=== PATIENT | female | born 1970 | race Two or more races ===

== ENCOUNTER 2016-07-25 13:09 | Emergency (ER) | payer OTHER, MEDICAID ==
[2016-07-25 13:18] VITALS: TEMP 97.3
[2016-07-25] MEDS ORDERED: traMADol 50 MG TAB PO ONE (13:26)
--- NOTE | 2016-07-25 13:50 | EDPHY ---
General Narrative: CHIEF COMPLAINT: Fall, Knee pain, bilateral wrist pain HISTORY OF PRESENT ILLNESS: Carrying trash out to a dumpster Earlier this morning when she slipped. She says she fell, striking her left knee and both wrists. . She has [id number] pain in both wrists, and severe pain left knee. The pain is to the point she can barely walk on the knee. There is swelling. No laceration. No head or neck injury. No loss of conscious. No chest or back pain. No abdominal injuries. No injury to the right leg. No pain in the hands, elbows or shoulders of the upper extremities. Pain is worse with any kind of palpation or movement. Does not radiate. It improves at rest but does resolve no other associated complaints or modifying factors. PRIOR ORTHO INJURIES: None ESTABLISHED ORTHOPEDIST: None REVIEW OF SYSTEMS: Ten systems reviewed and are negative unless otherwise noted in the HPI EXAMINATION General Appearance: Alert, no distress Head: normocephalic, atraumatic Eyes: Pupils equal and round, no conjunctival pallor or injection ENT, Mouth: Mucous membranes moist. Uvula midline Neck: Normal inspection. Painless range of motion in all planes Respiratory: No dyspnea or retractions. No distress Cardiovascular: Symmetric DP and PT pulses at 2+. Gastrointestinal: No distention Neurological: A&O, sensory symmetric, strength symmetric Skin: Warm and dry . Superficial abrasion of the left knee. No lacerations. No contusions. No hematomas Extremities: LUE: TTP of the wrist but no snuffbox tenderness. ROM intact and symmetric. RUE: TTP of the wrist. No snuffbox tenderness. ROM intact and symmetric LLE: Tender palpation of the knee. Range of motion is intact but painful. There is no effusion. No crepitus. Negative drawer test. Negative Sandra. Superficial abrasion erythema. Neurovascular intact distal to all areas of injury. Psychiatric: Mood and affect normal DIFFERENTIAL DIAGNOSES: Including but not limited to Contusion, sprain, strain, fracture, fracture dislocation MDM: 1:30 p.m. Left knee pain, bilateral wrist pain after mechanical fall. No abrasions or lacerations. NVI distal to injuries. X-rays pending. 2:55 p.m. x-ray is read as no acute findings. possible loose bodies noted on the knee x -ray. I have discussed these findings with the patient. Patient feels that she is in too much pain to ambulate, and we will provide an Alan wrap and crutches. She is to follow up with her defined worker's Comp location per her Employer. Follow up with Orthopedics for definitive care. Return to the ER for worsening symptoms as discussed. ED Precautions: Worsening pain. Erythema, edema, cyanosis, pallor, paresthesia or anesthesia. SUPERVISION: This patient was independently evaluated without the aide of supervising physician. - History Smoking Status: Current every day smoker - Objective Vital Signs: Initial Vital Signs Temperature (C) 97.3 F 07/25/16 13:10 Heart Rate 81 07/25/16 13:10 Respiratory Rate 16 07/25/16 13:10 Blood Pressure 155/86 H 07/25/16 13:10 O2 Sat (%) 96 07/25/16 13:10 O2 Delivery Mode Room Air Allergies/Adverse Reactions: codeine [Codeine] Allergy (Intermediate, Verified 03/09/09 08:09) Rash morphine [Morphine] Allergy (Verified 05/16/09 19:29) Home Medications: Medication Instructions Recorded Unknown Anxiety Med 05/16/09 traMADol [Ultram 50 mg (*)] 50 mg PO Q4 PRN #12 tab 07/25/16 Departure - Departure Disposition: Home, Routine, Self-Care Clinical Impression: Contusion of knee, left Qualifiers: Encounter type: initial encounter Qualified Code(s): S80.02XA - Contusion of left knee, initial encounter Left wrist sprain Qualifiers: Encounter type: initial encounter Qualified Code(s): S63.502A - Unspecified sprain of left wrist, initial encounter Sprain of wrist, right Qualifiers: Encounter type: initial encounter Qualified Code(s): S63.501A - Unspecified sprain of right wrist, initial encounter Condition: Good Instructions: Sprain (ED), Contusion in Adults (ED) Additional Instructions: follow-up with Orthopedics for definitive care. Follow up with your establish worker's compensation Clinic per highway safety engineer. Return to ER for worsening symptoms, swelling, numbness or tingling Referrals: AYSHA JONES [Other] - As per Instructions Osmel Lewis MD [Medical Doctor] - As per Instructions Stand Alone Forms: Work Excuse Prescriptions: traMADol [Ultram 50 mg (*)] 50 mg PO Q4 PRN #12 tab PRN Reason: Pain, Mild
[2016-07-25 15:12] VITALS: BP 142/72; PULSE 72; RESP 18; O2SAT 95
== END 2016-07-25 15:12 | disposition home or self-care (01) ==
DX: S63.502A Unspecified sprain of left wrist, initial encounter (principal); S63.501A Unspecified sprain of right wrist, initial encounter; S80.02XA Contusion of left knee, initial encounter; F17.200 Nicotine dependence, unspecified, uncomplicated; W01.198A Fall on same level from slipping, tripping and stumbling with subsequent striking against other object, initial encounter

== ENCOUNTER 2016-10-09 11:32 | Emergency (ER) | payer MEDICAID, OTHER ==
[2016-10-09 11:40] VITALS: RESP 16
[2016-10-09 12:40] VITALS: O2SAT 98
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
[2016-10-09 13:44] LABS: COLOR PALE YELLOW; LEUKOCYTE ESTERASE,URINE NEGATIVE (NEGATIVE); NITRITE,URINE NEGATIVE (NEGATIVE)
[2016-10-09 13:45] LABS: BACTERIA TRACE /hpf (NONE SEEN); MUCUS TRACE /lpf (NONE-1+)
[2016-10-09 14:06] VITALS: BP 138/78; PULSE 76; TEMP 97.5
== END 2016-10-09 14:05 | disposition home or self-care (01) ==
DX: R53.1 Weakness (principal); F17.200 Nicotine dependence, unspecified, uncomplicated